=== PATIENT | female | born 1965 | race Caucasian/White ===

== ENCOUNTER 2019-11-02 11:08 | Outpatient (CLI) | payer OTHER, SELFPAY ==
--- NOTE | 2019-11-02 11:00 | US_ITS ---
WS: [id number] RENAL ULTRASOUND HISTORY: RENAL MASS COMPARISON: 04/05/2019, 12/06/2018 TECHNIQUE: 2-D and color Doppler imaging of the kidney submitted. Right kidney: 9.0 cm x 5.3 cm x 4.6 cm. Mild diffuse cortical thinning. No obstruction or mass. Left kidney: 9.0 cm x 5.2 cm x 4.7 cm. Mild cortical thinning with no obstruction. Again noted is the mixed echogenic nodule in the cortex o f the mid LEFT kidney measuring 1.6 x 1.5 cm. Mild increased blood flow. Not significantly changed in size since the prior examinations. Aorta: Normal. Urinary Bladder: Normal distention. US/US renal BI* [id number] IMPRESSION: 1. Stable solid mass with increased blood flow in the mid LEFT kidney measurin g 1.6 x 1.5 cm. No change since 12/06/2018. Suspicious for small renal cell neop lasm. 2. Mild cortical thinning of each kidney.
== END 2019-11-02 11:09 | disposition home or self-care (01) ==
LOC: RAD 11:12
PROVIDERS: Family Provider Student in an Organized Health Care Education/Training Program; PCP Student in an Organized Health Care Education/Training Program; Visit Provider Urology
DX: N28.89 Other specified disorders of kidney and ureter (principal)
CPT/HCPCS: 76770; 81001

== ENCOUNTER 2020-05-02 11:19 | Outpatient (CLI) | payer SELFPAY ==
--- NOTE | 2020-05-02 12:45 | US_ITS ---
WS: [id number] ULTRASOUND RENAL TECHNIQUE: Ultrasound examination of both kidneys. CLINICAL INFORMATION: Renal mass COMPARISON: Ultrasound November 02, 2019 and March 2019 and November 2018 FINDINGS: RIGHT: Right kidney is normal in size and appearance. Solid hypoechoic lesion right kidney superior pole measure 1.6 x 1.7 x 1.7 CM. Echogenicity: Normal. Cortical thickness: 0.8 cm; Normal. Hydronephrosis: None. Perinephric fluid: None. Right kidney measures: 8.0 cm x 4.2 cm x 4.1 cm. LEFT: Left kidney is normal in size and appearance. Small hypoechoic solid lesion measuring 1.8 x 1.6 x 1.8 cm unchanged. Echogenicity: Normal. Cortical thickness: 0.9 cm; Normal. Hydronephrosis: None. Perinephric fluid: None. Left kidney measures: 9.2 cm x 3.3 cm x 3.6 cm. Normal visualized aorta. Normal bladder. US/US renal BI* [id number] IMPRESSION: 1. No hydronephrosis in either kidney. 2. Mild renal cortical atrophy. 3. Small hypoechoic solid lesion LEFT mid kidney measuring 1.8 x 1.6 x 1.8 cm unchanged from previous. Recommend continued annual surveillance. This is unch anged since 4. Additional small hypoechoic lesion upper pole RIGHT kidney is new or better seen today measuring 1.6 x 1.7 x 1.7 CM. Small renal neoplasm not excluded. Re commend continued annual surveillance.
== END 2020-05-02 11:20 | disposition home or self-care (01) ==
LOC: RAD 11:21
PROVIDERS: Family Provider Student in an Organized Health Care Education/Training Program; PCP Student in an Organized Health Care Education/Training Program; Visit Provider Urology
DX: N28.89 Other specified disorders of kidney and ureter (principal); N26.1 Atrophy of kidney (terminal); N28.9 Disorder of kidney and ureter, unspecified
CPT/HCPCS: 76770; 80053; 81001